=== PATIENT | female | born 1950 | race Caucasian/White ===

== ENCOUNTER 2022-01-25 19:46 | Emergency (ER) | payer MEDICARE, BC ==
[~2022-01-25] VITALS: Ht 160 cm; Wt 89.4 kg
[~2022-01-25 19:46] MED LIST: ESCI20; OMEP20ER PO; TRAZ100 PO
[2022-01-25] MEDS ORDERED: PROG100 PO (21:56)
[2022-01-25] MEDS ORDERED: Crestor20 MG PO (21:57)
[2022-01-25] MEDS ORDERED: ESTRADIOL (21:58)
[2022-01-25] MEDS ORDERED: ASPI81CH PO (21:58)
[2022-01-25] MEDS ORDERED: [UNRECOGNIZED DRUG - OTHER] (21:58)
[2022-01-25] MEDS ORDERED: COQ-10100 MG PO (21:59)
[2022-01-25] MEDS ORDERED: ALPR.5 PO (22:00)
[2022-01-25] MEDS ORDERED: MELO7.5 (22:00)
== END 2022-01-25 23:57 | disposition home or self-care (01) ==
LOC: ER 19:46
DX: M71.22 Synovial cyst of popliteal space [Baker], left knee (principal); Z91.040 Latex allergy status; Z88.8 Allergy status to other drugs, medicaments and biological substances; Z79.899 Other long term (current) drug therapy; Z79.82 Long term (current) use of aspirin
CPT/HCPCS: 93971

== ENCOUNTER 2023-01-25 07:15 | Day surgery (SDC) | payer MEDICARE, BC ==
[~2023-01-25] VITALS: Ht 160 cm; Wt 87.1 kg
[~2023-01-25 07:15] MED LIST changes: +ALBU90OI INH; +ALPR.5 PO; +ASPI81CH PO; +Ascorbic Acid500 MG PO; +CALCIUM-MAGNES1 EAC9 PO; +COLLAGEN-VIT C1 EACH PO; +COQ-10100 MG PO; +Crestor20 MG PO; +DHEA PO; +EPIPEN0.3 MG/0.3; -ESCI20; +ESCI20 PO; +ESTRADIOL; +ESTRADIOL TOP; +FISH OIL PO; +MELO7.5; +MELO7.5 PO; +PROG100 PO; +VITAMIN D32000 UNI2 PO; +Vitamin B Comple1 EA PO; +[UNRECOGNIZED DRUG - OTHER]
[2023-01-25] MEDS ORDERED: ADRENAL OPTIMI1 EACH (07:38)
[2023-01-25 10:16] VITALS: BP 116/65
[2023-01-26] MEDS ORDERED: COQ1050 MG PO (14:23)
== END 2023-01-25 10:15 | disposition home or self-care (01) ==
LOC: ORSCSDS 07:15
PROVIDERS: Internal Medicine Gastroenterology
PROC: 0DBK8ZX Excision of Ascending Colon, Via Natural or Artificial Opening Endoscopic, Diagnostic (ICD-10-PCS; principal; 2023-01-25 08:45)
PROC: 0DBM8ZX Excision of Descending Colon, Via Natural or Artificial Opening Endoscopic, Diagnostic (ICD-10-PCS; principal; 2023-01-25 08:45)
DX: Z12.11 Encounter for screening for malignant neoplasm of colon (principal); Z86.010 Personal history of colon polyps; Z80.0 Family history of malignant neoplasm of digestive organs; D12.2 Benign neoplasm of ascending colon; K63.5 Polyp of colon; K64.8 Other hemorrhoids; E78.5 Hyperlipidemia, unspecified; Z79.899 Other long term (current) drug therapy
CPT/HCPCS: 88305; J2704; J7120

== ENCOUNTER 2023-02-06 06:12 | Inpatient (IN) | payer MEDICARE, BC ==
[~2023-02-06] VITALS: Ht 160 cm; Wt 90.2 kg
[2023-02-06] VITALS (13 sets, daily range): BP systolic 110–139; BP diastolic 52–87
[~2023-02-06 06:12] MED LIST changes: +ADRENAL OPTIMI1 EACH; +COQ1050 MG PO
--- NOTE | 2023-02-06 07:30 | NUR ---
CALF PAS AND KNEE HIGH RADHA HOSE APPLIED TO RLE. PATIENT REMOVED UPPER DENTURES AND PLACED IN PROTECTIVE CASE IN HER BELONGING BAG. GLASSES REMOVED AND BROUGHT PACU FOR SAFE KEEPING DURING SURGERY.
--- NOTE | 2023-02-06 08:09 | NUR ---
02/06/23 0809 Wendy Chung UPON ARRIVAL TO OR, SPINAL EPIDURAL COMPLETED MY DR. BHAT. PT TOLERATED WELL. VSS
--- NOTE | 2023-02-06 10:23 | NUR ---
PATIENT CONSENT STATEMENT. PT CONSENTED THIS 2ND YEAR [employer] RN STUDENT TO PARTICIPATE IN CARE TODAY.
[2023-02-06] MEDS ORDERED: ACET500 PO (11:26)
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
--- NOTE | 2023-02-06 17:40 | NUR ---
END OF SHIFT SUMMARY. PT TOLERATING PO INTAKE WITH NO NAUSEA OR VOMITING. PT'S PAIN CONTROLLED WITH TYLENOL AND TORADOL 2/10 PAIN MOST OF THE DAY. PT AMBULATES TO THE BATHROOM. CONTINENT OF URINE. LEFT KNEE AQUACEL CLEAN, DRY, AND INTACT.
[2023-02-07 00:33] VITALS: BP 141/69
[2023-02-07 03:54] LABS: BASOPHILS ABSOLUTE AUTO 0.02 K/mm3 (0.00-0.23); BASOPHILS PERCENT AUTO 0 % (0-2); EOSINOPHILS PERCENT AUTO 0 % (0-6); Hematocrit 34.7 % (33.0-51.0); Hemoglobin 11.9 g/dL (11.5-16.0); IMMATURE GRAN ABSOLUTE AUTO 0.07 K/mm3 (0.00-0.10); IMMATURE GRAN PERCENT AUTO 1 % (0-1); LYMPHOCYTES ABSOLUTE AUTO 1.38 K/mm3 (0.84-5.20); LYMPHOCYTES PERCENT AUTO 10 % (21-46); MONOCYTES ABSOLUTE AUTO 0.79 K/mm3 (0.16-1.47); MONOCYTES PERCENT AUTO 6 % (4-13); Mean Corpuscular HGB 29.9 pg (26.0-34.0); Mean Corpuscular HGB Conc 34.3 g/dL (31.5-36.5); Mean Corpuscular Volume 87 fL (80-100); Mean Platelet Volume 9.4 fL (9.1-12.4); NEUTROPHILS ABSOLUTE AUTO 12.19 K/mm3 (1.96-9.15); NEUTROPHILS PERCENT AUTO 84 % (41-73); Platelet Count 246 K/mm3 (150-400); RDW Coefficient Variation 12.4 % (11.7-14.2); RDW Standard Deviation 39.7 fL (35.1-46.3); Red Blood Cell Count 3.98 M/mm3 (3.80-5.20); White Blood Cell Count 14.45 K/mm3 (4.00-11.30)
[2023-02-07 04:06] VITALS: BP 120/55
[2023-02-07 05:20] LABS: Bun/Creatinine Ratio 22.1 (12.0-20.0); Calcium, Blood 9.2 mg/dL (8.5-10.1); Creatinine, Blood 0.73 mg/dL (0.40-1.00); Magnesium, Blood 2.3 mg/dL (1.6-2.4); Potassium, Blood 4.3 mmol/L (3.5-5.5)
--- NOTE | 2023-02-07 06:35 | NUR ---
SHIFT SUMMARY A/O X4- POD1 L TKA, AQUACEL C/D/I. AMBULATING WELL W/ SBA, FWW, AND GB. PAIN MANAGED WELL W/ PO PAIN MEDICATIONS. VOIDING WELL, TOLERATING PO INTAKE- NO REPORT OF N/V. VITAL SIGNS STABLE. WILL REPORT TO ONCOMING RN.
[2023-02-07 07:17] VITALS: BP 125/48
[2023-02-07 07:19] VITALS: BP 114/54
--- NOTE | 2023-02-07 12:37 | NUR ---
DISCHARGE SUMMARY PT A&OX4, VSS/RA, YOVANI PO, VOIDING, AMB FWW & GB/UP TO CHAIR, PAIN MANAGED, IV DC'D. DC INS PROVIDED. PT REP UNDERSTANDING THOSE INSTRUCTIONS INCLUDING DRESSING CHANGES, ASA BID, PAIN MEDS/MGT, SHORT FREQUENT WALKS WITH REST PERIODS/ICED ELEVATED, PHYSICAL THERAPY OUTPT. LEFT FLOOR VIA WC WITH PECAN MALLOW DIPPER TO GO HOME WITH SPOUSE WITH ALL PERSONAL POSSESSIONS INCLUDING DC PACKET AND AQUACEL DRESSINGS.
== END 2023-02-07 10:20 | disposition home or self-care (01) | DRG 468 ==
LOC: SURS 06:12 → PRE IP 07:30 → SURS 10:23
PROVIDERS: ADMIT Orthopaedic Surgery
PROC: 0SRD0J9 Replacement of Left Knee Joint with Synthetic Substitute, Cemented, Open Approach (ICD-10-PCS; 2023-02-06)
PROC: 8E0YXCZ Robotic Assisted Procedure of Lower Extremity (ICD-10-PCS; 2023-02-06)
PROC: 0SPD0JZ Removal of Synthetic Substitute from Left Knee Joint, Open Approach (ICD-10-PCS; principal; 2023-02-06 07:30)
DX: M17.12 Unilateral primary osteoarthritis, left knee (principal); F32.9 Major depressive disorder, single episode, unspecified; F41.1 Generalized anxiety disorder; M25.762 Osteophyte, left knee; G89.29 Other chronic pain; G47.00 Insomnia, unspecified; E66.9 Obesity, unspecified; Z68.35 Body mass index [BMI] 35.0-35.9, adult; Z79.891 Long term (current) use of opiate analgesic; Z79.899 Other long term (current) drug therapy; Z98.1 Arthrodesis status; Z98.890 Other specified postprocedural states; Z98.42 Cataract extraction status, left eye; Z98.51 Tubal ligation status; Z90.710 Acquired absence of both cervix and uterus; Z96.653 Presence of artificial knee joint, bilateral; Z79.51 Long term (current) use of inhaled steroids; Z79.82 Long term (current) use of aspirin; Z91.040 Latex allergy status
CPT/HCPCS: 36415; 73560-LT; 80048; 83735; 85025; 97110; 97116; 97162; A9270; C1713; C1776; J0171; J0690; J0735; J1100; J1885; J2250; J2370; J2405; J2704; J2795; J3010; J7120

== ENCOUNTER 2023-04-24 11:11 | Day surgery (SDC) | payer MEDICARE, BC ==
[~2023-04-24] VITALS: Ht 160 cm; Wt 87.0 kg
[~2023-04-24 11:11] MED LIST changes: +ACET500 PO
[2023-04-24] MEDS ORDERED: IBUP200 (11:34)
[2023-04-24] MEDS ORDERED: ADRENAL OPTIMI1 EACH (11:35)
[2023-04-24] MEDS ORDERED: VITAMIN D325 MC3 (11:35)
--- NOTE | 2023-04-24 12:52 | NUR ---
04/24/23 1252 Gifty Rios 20ML OF ROPIVACAINE 0.5% MIXED AND VERIFIED WITH 0.1ML OF EPI (1MG/ML) TO MAKE ROPIVACAINE 0.5% WITH EPI 1:200,000 FOR INJECTION AT [facility] BY DR RIVERO.
--- NOTE | 2023-04-24 13:42 | NUR ---
04/24/23 1342 Latasha Stallings INCENTIVE SPIROMETER GIVEN. EDUCATED ON INCENTIVE SPIROMETER USE. PT DEMONSTRATED UNDERSTANDING OF HOW TO USE IT.
[2023-04-24 13:57] VITALS: BP 142/70
== END 2023-04-24 14:21 | disposition home or self-care (01) ==
LOC: ORSCSDS 11:11
PROVIDERS: Podiatrist Foot & Ankle Surgery
PROC: 0SGP04Z Fusion of Right Toe Phalangeal Joint with Internal Fixation Device, Open Approach (ICD-10-PCS; principal; 2023-04-24 12:30)
DX: M19.071 Primary osteoarthritis, right ankle and foot (principal); M20.41 Other hammer toe(s) (acquired), right foot; E78.5 Hyperlipidemia, unspecified; Z87.891 Personal history of nicotine dependence; E66.9 Obesity, unspecified; Z68.34 Body mass index [BMI] 34.0-34.9, adult; Z79.899 Other long term (current) drug therapy; Z79.82 Long term (current) use of aspirin
CPT/HCPCS: A9270; C1713; J0171; J0690; J1100; J2250; J2405; J2704; J2765; J2795; J3010; J7120

== ENCOUNTER → 2024-08-20 | Outpatient (CLI) | payer MEDICARE, BC ==
[~2024-08-20] MED LIST changes: +IBUP200; +VITAMIN D325 MC3
[2024-08-20 10:52] LABS: Body Fluid Crystals NEG (NEGATIVE)
[2024-08-20 11:08] LABS: BODY FLUID RBC 0.024 M/mm3 (0-0)
[2024-08-20 11:11] LABS: RBC Count, Synovial Fluid 24000 /mm3 (0-0); WBC Count, Synovial Fluid 986 /mm3 (0-180)
[2024-08-20 12:15] LABS: Appearance, Synovial Fluid Hazy (Clear); Color, Synovial Fluid Yellow (None-P Yel); Eos, Synovial Fluid 1 % (0-2); Lymphs, Synovial Fluid 13 % (0-15); Monocytes/Macrophages, Synovia 53 % (0-65); Neutrophils, Synovial Fluid 33 % (0-24)
[2024-08-20 12:19] LABS: Crystals, Synovial Fluid Not Seen (Not Seen)
== END | disposition home or self-care (01) ==
LOC: LAB 10:33 → LAB SHORT 10:33
PROVIDERS: Orthopaedic Surgery
DX: Z96.651 Presence of right artificial knee joint (principal)
CPT/HCPCS: 87070; 87075; 87106; 87205; 89051; 89060